=== PATIENT | male | born 1980 | race Caucasian/White ===

== ENCOUNTER 2020-12-19 15:03 | Outpatient (CLI) | payer OTHER | END 2020-12-19 15:04 | disposition home or self-care (01) | LOC: CSHCT 15:03 | PROVIDERS: ATTEND Nurse Practitioner Family | DX: M54.14 Radiculopathy, thoracic region (principal); M47.814 Spondylosis without myelopathy or radiculopathy, thoracic region | CPT/HCPCS: 72128 ==